=== PATIENT | female | born 1950 | race Caucasian/White ===

== ENCOUNTER → 2016-11-12 | Outpatient (CLI) | payer MEDICARE, MEDICAID ==
[~2016-11-12] MED LIST: CALC1TAB87 PO; CARV25TA PO; CHOL20005 PO; ENAL10TA PO; FISHCAP4 PO; FOLI400T PO; GLUC1CAP14 PO; INFL100P IV; LEVO75TA3 PO; METH0.35 IM; MULT-65 PO; TURM500C PO
[2016-11-12 10:30] LABS: HEMATOCRIT 40.1 % (35.0-46.0); MEAN CELL VOLUME 88.2 FL (80.0-100.0); MEAN CORPUSCULAR HEMOGLOBIN 28.7 PG (27.0-34.0); MEAN CORPUSCULAR HGB CONC 32.5 % (32.0-36.0); PLATELET COUNT 224 TH/MM3 (150-450); RED BLOOD COUNT 4.54 MIL/MM3 (4.00-5.30); RED CELL DISTRIBUTION WIDTH 15.3 % (11.6-17.2); REVIEW FLAG FINAL
[2016-11-12 12:12] LABS: ALT (GPT) 38 U/L (10-53); ANION GAP 8 MEQ/L (5-15); AST (GOT) 25 U/L (15-37); BLOOD UREA NITROGEN 15 MG/DL (7-18); CHLORIDE 106 MEQ/L (98-107); GLOMERULAR FILTRATION RATE 94 ML/MIN (>89); POTASSIUM 4.5 MEQ/L (3.5-5.1); SODIUM (NA) 142 MEQ/L (136-145)
[2016-11-12 12:15] LABS: ALKALINE PHOSPHATASE 45 U/L (45-117); CREATINE KINASE 282 U/L (26-192); LDL CHOLESTEROL 118 MG/DL (0-99); TOTAL BILIRUBIN ADULT 1.1 MG/DL (0.2-1.0)
[2016-11-12 12:31] LABS: CKMB 4.4 NG/ML (0.5-3.6)
== END ==
LOC: OLAB 10:08
PROVIDERS: ATTEND Family Medicine
DX: M33.12 Other dermatomyositis with myopathy (principal); E78.1 Pure hyperglyceridemia; Z79.899 Other long term (current) drug therapy
CPT/HCPCS: 36415; 80053; 80061; 82550; 82552; 85027

== ENCOUNTER → 2017-02-13 | Outpatient (CLI) | payer MEDICARE, MEDICAID ==
[2017-02-13 10:18] LABS: HEMATOCRIT 42.1 % (35.0-46.0); MEAN CELL VOLUME 89.7 FL (80.0-100.0); MEAN CORPUSCULAR HEMOGLOBIN 29.4 PG (27.0-34.0); MEAN CORPUSCULAR HGB CONC 32.7 % (32.0-36.0); PLATELET COUNT 238 TH/MM3 (150-450); RED BLOOD COUNT 4.69 MIL/MM3 (4.00-5.30); RED CELL DISTRIBUTION WIDTH 14.7 % (11.6-17.2); REVIEW FLAG FINAL; WHITE BLOOD COUNT 4.2 TH/MM3 (4.0-11.0)
[2017-02-13 13:18] LABS: ALT (GPT) 66 U/L (10-53); ANION GAP 7 MEQ/L (5-15); AST (GOT) 40 U/L (15-37); BICARBONATE 30.3 MEQ/L (21.0-32.0); BLOOD UREA NITROGEN 18 MG/DL (7-18); CHLORIDE 101 MEQ/L (98-107); GLOMERULAR FILTRATION RATE 89 ML/MIN (>89); GLUCOSE,FASTING 88 MG/DL (74-99); POTASSIUM 4.2 MEQ/L (3.5-5.1); SODIUM (NA) 138 MEQ/L (136-145)
[2017-02-13 13:20] LABS: ALKALINE PHOSPHATASE 54 U/L (45-117); CREATINE KINASE 251 U/L (26-192); TOTAL BILIRUBIN ADULT 1.6 MG/DL (0.2-1.0)
[2017-02-13 13:36] LABS: CKMB 5.5 NG/ML (0.5-3.6)
== END ==
LOC: OLAB 09:54
PROVIDERS: ATTEND Internal Medicine Rheumatology
DX: E78.1 Pure hyperglyceridemia (principal); M33.12 Other dermatomyositis with myopathy; Z79.899 Other long term (current) drug therapy
CPT/HCPCS: 36415; 80053; 82550; 82552; 85027

== ENCOUNTER → 2017-04-26 | Outpatient (CLI) | payer MEDICARE, MEDICAID ==
[~2017-04-26] MED LIST changes: -GLUC1CAP14 PO; +GLUC500T4 PO; -TURM500C PO; +TURM500C3
== END ==
LOC: ELAB 09:56
PROVIDERS: ATTEND Internal Medicine Rheumatology
DX: M33.12 Other dermatomyositis with myopathy (principal); Z79.899 Other long term (current) drug therapy; Z23 Encounter for immunization

== ENCOUNTER → 2017-05-29 | Outpatient (CLI) | payer MEDICARE, MEDICAID ==
[2017-05-29 10:05] LABS: AUTOMATED NEUTROPHIL # 2.1 TH/MM3 (1.8-7.7); BASOPHIL % 0.3 % (0.0-2.0); EOSINOPHIL # 0.1 TH/MM3 (0-0.4); HEMATOCRIT 38.4 % (35.0-46.0); LYMPH % 39.3 % (9.0-44.0); LYMPHOCYTE # 1.8 TH/MM3 (1.0-4.8); MEAN CELL VOLUME 90.4 FL (80.0-100.0); MEAN CORPUSCULAR HEMOGLOBIN 30.5 PG (27.0-34.0); MEAN CORPUSCULAR HGB CONC 33.7 % (32.0-36.0); MONO % 14.9 % (0.0-8.0); NEUT % 43.5 % (16.0-70.0); RED BLOOD COUNT 4.24 MIL/MM3 (4.00-5.30); RED CELL DISTRIBUTION WIDTH 14.6 % (11.6-17.2); WHITE BLOOD COUNT 4.7 TH/MM3 (4.0-11.0)
[2017-05-29 10:09] LABS: HEMO FLAGS AUTO DIFF; PLATELET COUNT 167 TH/MM3 (150-450)
[2017-05-29 10:11] LABS: PLATELET ESTIMATE SMEAR NORMAL (NORMAL); PLATELET MORPHOLOGY CLUMPED (NORMAL); SCAN/DIFF AUTO DIFF CONFIRMED
[2017-05-29 13:04] LABS: ANION GAP 5 MEQ/L (5-15); AST (GOT) 26 U/L (15-37); BICARBONATE 29.6 MEQ/L (21.0-32.0); BLOOD UREA NITROGEN 16 MG/DL (7-18); CHLORIDE 102 MEQ/L (98-107); GLOMERULAR FILTRATION RATE 99 ML/MIN (>89); GLUCOSE,FASTING 96 MG/DL (74-99); SODIUM (NA) 137 MEQ/L (136-145)
[2017-05-29 13:05] LABS: ALT (GPT) 40 U/L (10-53)
[2017-05-29 13:14] LABS: ALKALINE PHOSPHATASE 56 U/L (45-117); CREATINE KINASE 291 U/L (26-192); FREE T4 0.81 NG/DL (0.76-1.46); HDL CHOLESTEROL 32.2 MG/DL (40.0-60.0); TOTAL BILIRUBIN ADULT 1.1 MG/DL (0.2-1.0)
[2017-05-29 13:26] LABS: CKMB 5.3 NG/ML (0.5-3.6)
== END ==
LOC: OLAB 09:16
PROVIDERS: ATTEND Internal Medicine Rheumatology
DX: M33.12 Other dermatomyositis with myopathy (principal); E78.1 Pure hyperglyceridemia; M15.9 Polyosteoarthritis, unspecified; I43 Cardiomyopathy in diseases classified elsewhere; E03.9 Hypothyroidism, unspecified; Z79.899 Other long term (current) drug therapy
CPT/HCPCS: 36415; 80053; 80061; 82550; 82552; 84439; 84443; 85025

== ENCOUNTER → 2017-07-22 | Outpatient (CLI) | payer MEDICARE, MEDICAID ==
[~2017-07-22] MED LIST changes: -CHOL20005 PO; +D200CAP PO
[2017-07-22 12:55] LABS: HEMATOCRIT 37.5 % (35.0-46.0); MEAN CELL VOLUME 90.9 FL (80.0-100.0); MEAN CORPUSCULAR HEMOGLOBIN 30.9 PG (27.0-34.0); PLATELET COUNT 241 TH/MM3 (150-450); RED BLOOD COUNT 4.13 MIL/MM3 (4.00-5.30); RED CELL DISTRIBUTION WIDTH 14.2 % (11.6-17.2); REVIEW FLAG FINAL; WHITE BLOOD COUNT 4.4 TH/MM3 (4.0-11.0)
[2017-07-22 15:34] LABS: ALKALINE PHOSPHATASE 48 U/L (45-117); ALT (GPT) 37 U/L (10-53); AST (GOT) 24 U/L (15-37); BLOOD UREA NITROGEN 11 MG/DL (7-18); GLOMERULAR FILTRATION RATE 120 ML/MIN (>89); GLUCOSE,FASTING 95 MG/DL (74-99)
[2017-07-22 15:35] LABS: ANION GAP 9 MEQ/L (5-15); BICARBONATE 26.1 MEQ/L (21.0-32.0); CHLORIDE 104 MEQ/L (98-107); CREATINE KINASE 243 U/L (26-192); POTASSIUM 4.1 MEQ/L (3.5-5.1); SODIUM (NA) 139 MEQ/L (136-145); TOTAL BILIRUBIN ADULT 0.7 MG/DL (0.2-1.0)
[2017-07-22 15:58] LABS: CKMB 4.2 NG/ML (0.5-3.6)
== END ==
LOC: OLAB 09:40
PROVIDERS: ATTEND Internal Medicine Rheumatology
DX: M33.12 Other dermatomyositis with myopathy (principal); Z79.899 Other long term (current) drug therapy
CPT/HCPCS: 36415; 80053; 82550; 82552; 85027

== ENCOUNTER → 2017-10-14 | Outpatient (CLI) | payer MEDICARE, MEDICAID ==
[2017-10-14 13:03] LABS: AUTOMATED NEUTROPHIL # 1.6 TH/MM3 (1.8-7.7); BASOPHIL # 0.1 TH/MM3 (0-0.2); BASOPHIL % 1.1 % (0.0-2.0); EOSINOPHIL # 0.1 TH/MM3 (0-0.4); EOSINOPHIL % 1.2 % (0.0-4.0); HEMOGLOBIN 13.5 GM/DL (11.6-15.3); LYMPH % 54.6 % (9.0-44.0); LYMPHOCYTE # 2.6 TH/MM3 (1.0-4.8); MEAN CELL VOLUME 90.6 FL (80.0-100.0); MEAN CORPUSCULAR HEMOGLOBIN 31.4 PG (27.0-34.0); MEAN CORPUSCULAR HGB CONC 34.7 % (32.0-36.0); MEAN PLATELET VOLUME 9.2 FL (7.0-11.0); MONO % 9.5 % (0.0-8.0); MONOCYTE # 0.5 TH/MM3 (0-0.9); NEUT % 33.6 % (16.0-70.0); PLATELET COUNT 255 TH/MM3 (150-450); RED CELL DISTRIBUTION WIDTH 15.2 % (11.6-17.2); WHITE BLOOD COUNT 4.8 TH/MM3 (4.0-11.0)
[2017-10-14 13:06] LABS: ALBUMIN 3.5 GM/DL (3.4-5.0); ALT (GPT) 38 U/L (10-53); AST (GOT) 25 U/L (15-37); BICARBONATE 28.2 MEQ/L (21.0-32.0); BLOOD UREA NITROGEN 13 MG/DL (7-18); CALCIUM 9.2 MG/DL (8.5-10.1); CHLORIDE 105 MEQ/L (98-107); CREATININE 0.66 MG/DL (0.50-1.00); GLOMERULAR FILTRATION RATE 89 ML/MIN (>89); GLUCOSE,RANDOM 97 MG/DL (74-106); SODIUM (NA) 138 MEQ/L (136-145)
[2017-10-14 13:09] LABS: ALKALINE PHOSPHATASE 55 U/L (45-117); TOTAL BILIRUBIN ADULT 0.5 MG/DL (0.2-1.0); TOTAL PROTEIN 8.1 GM/DL (6.4-8.2)
== END ==
LOC: OLAB 10:29
PROVIDERS: ATTEND Internal Medicine Rheumatology
DX: M33.12 Other dermatomyositis with myopathy (principal); Z79.899 Other long term (current) drug therapy
CPT/HCPCS: 36415; 80053; 82550; 82552; 85025

== ENCOUNTER → 2017-12-30 | Outpatient (CLI) | payer MEDICARE, MEDICAID ==
[2017-12-30 13:53] LABS: HEMATOCRIT 39.4 % (35.0-46.0); HEMOGLOBIN 13.3 GM/DL (11.6-15.3); MEAN CELL VOLUME 90.7 FL (80.0-100.0); MEAN CORPUSCULAR HEMOGLOBIN 30.6 PG (27.0-34.0); MEAN CORPUSCULAR HGB CONC 33.7 % (32.0-36.0); MEAN PLATELET VOLUME 9.5 FL (7.0-11.0); PLATELET COUNT 227 TH/MM3 (150-450); RED BLOOD COUNT 4.35 MIL/MM3 (4.00-5.30); RED CELL DISTRIBUTION WIDTH 14.6 % (11.6-17.2); WHITE BLOOD COUNT 4.2 TH/MM3 (4.0-11.0)
[2017-12-30 14:10] LABS: ALBUMIN 3.5 GM/DL (3.4-5.0); AST (GOT) 29 U/L (15-37); BICARBONATE 28.9 MEQ/L (21.0-32.0); BLOOD UREA NITROGEN 11 MG/DL (7-18); CALCIUM 8.9 MG/DL (8.5-10.1); CHLORIDE 104 MEQ/L (98-107); CREATININE 0.69 MG/DL (0.50-1.00); GLOMERULAR FILTRATION RATE 84 ML/MIN (>89); GLUCOSE,FASTING 95 MG/DL (74-99); SODIUM (NA) 140 MEQ/L (136-145)
[2017-12-30 14:19] LABS: ALKALINE PHOSPHATASE 52 U/L (45-117); ALT (GPT) 46 U/L (10-53); CHOLESTEROL 209 MG/DL (120-200); CHOLESTEROL/ HDL RATIO 7.13 RATIO; FREE T4 0.96 NG/DL (0.76-1.46); HDL CHOLESTEROL 29.3 MG/DL (40.0-60.0); TOTAL PROTEIN 8.4 GM/DL (6.4-8.2); TRIGLYCERIDES 418 MG/DL (42-150)
== END ==
LOC: OLAB 10:16
PROVIDERS: ATTEND Family Medicine
DX: M33.12 Other dermatomyositis with myopathy (principal); E03.9 Hypothyroidism, unspecified; I43 Cardiomyopathy in diseases classified elsewhere; E78.1 Pure hyperglyceridemia; M15.9 Polyosteoarthritis, unspecified; Z79.899 Other long term (current) drug therapy
CPT/HCPCS: 36415; 80053; 80061; 82550; 82552; 84439; 84443; 85027